=== PATIENT | female | born 1985 | race Caucasian/White ===

== ENCOUNTER 2018-10-31 21:10 | Observation (INO) | payer SELFPAY ==
[~2018-10-31] VITALS: Ht 162.6 cm; Wt 100.9 kg
[2018-10-31] MEDS ORDERED: NS 1,000 ML IV ONE ×2 (21:30→22:15)
[2018-10-31 22:01] LABS: BASO % 0.2 % (0.0-1.0); EOS % 0.2 % (0.0-3.0); HEMATOCRIT 35.5 % (36.0-47.0); HEMOGLOBIN 11.3 g/dl (12.0-15.5); LYMPH # 1.6 10^3/uL (1.5-4.5); LYMPH % 8.2 % (24.0-44.0); MEAN CORPUSCULAR HEMOGLOBIN 26.3 pg (27.0-33.0); MEAN CORPUSCULAR HGB CONC 31.8 g/dl (32.0-36.5); MEAN CORPUSCULAR VOLUME 82.8 fl (80.0-96.0); MONO # 0.8 10^3/uL (0.0-0.8); MONO % 4.1 % (0.0-5.0); NEUTROPHILS # 17.2 10^3/uL (1.8-7.7); NEUTROPHILS % 86.5 % (36.0-66.0); PLATELET COUNT, AUTOMATED 277 10^3/uL (150-450); RED BLOOD COUNT 4.29 10^6/uL (4.00-5.40); WHITE BLOOD COUNT 19.9 10^3/uL (4.0-10.0)
[2018-10-31 22:05] LABS: INR 1.11; PROTHROMBIN TIME 14.5 SECONDS (12.1-14.4)
[2018-10-31 22:06] LABS: PARTIAL THROMBOPLASTIN TIME 25.2 SECONDS (25.4-37.6)
[2018-10-31 22:17] LABS: BLOOD UREA NITROGEN 10 MG/DL (7-18); CALCIUM LEVEL 7.9 MG/DL (8.5-10.1); CARBON DIOXIDE LEVEL 24 MEQ/L (21-32); CHLORIDE LEVEL 106 MEQ/L (98-107); CK-MB VALUE MASS < 1.0 NG/ML (<3.6); CPK CREATINE PHOSPHOKINASE 40 U/L (26-192); CREATININE FOR GFR 0.62 MG/DL (0.55-1.30); GLOMERULAR FILTRATION RATE > 60.0 (>60); GLUCOSE, FASTING 121 MG/DL (70-100); HCG, SERUM QUANTITATIVE 8020 MIU/ML; POTASSIUM SERUM 3.7 MEQ/L (3.5-5.1); SODIUM LEVEL 136 MEQ/L (136-145); TROPONIN I < 0.02 NG/ML (< 0.10)
[2018-10-31] MEDS ORDERED: RHOGAM 300 MCG (1500 IU) INJ (J2790) IM ONE (22:45)
--- NOTE | 2018-11-01 00:42 | REPVR ---
EXAM: US First Trimester, Transabdominal EXAM DATE/TIME: 10/31/2018 11:02 PM CLINICAL HISTORY: 33 years old, female; Signs and symptoms; Lmp or gestational age (in weeks): Lmp 08/11/18; Antepartum complications; Bleeding; ; Additional info: Vaginal bleeding TECHNIQUE: Imaging protocol: Real-time transabdominal obstetrical ultrasound of the maternal pelvis and a first trimester , less than 14 weeks 0 days, with image documentation. COMPARISON: No relevant prior studies available. FINDINGS: GESTATION: Gestation: No intrauterine gestation sac is seen. MATERNAL: Uterus: Uterus measures 11.9 x 6.5 x 8.0 cm. Endometriam is smooth but thickned measuring 12.1- 16.6 cm. Clots in the endometrial canal. Right adnexa: Unremarkable. Left adnexa: Unremarkable. Intraperitoneal: No intraperitoneal free fluid. IMPRESSION: No intrauterine gestation sac is seen. Endometriam is smooth but thickned measuring 12.1- 16.6 cm. Clots in the endometrial canal. Findings represent spontaneous . Electronically signed by: Danni Estrada On 11/01/2018 00:41:33 AM
[2018-11-01] MEDS ORDERED: LR 1,000 ML IV SCH (01:00)
[2018-11-01] MEDS ORDERED: IBUP200T45 PO (01:15)
[2018-11-01] MEDS ORDERED: CAYE450C3 PO (01:15)
[2018-11-01] MEDS ORDERED: MAGN400C PO (01:15)
[2018-11-01] MEDS ORDERED: B-COTAB10 PO (01:15)
[2018-11-01] MEDS ORDERED: OYST1TAB PO (01:15)
[2018-11-01 01:55] VITALS: BP 126/70
[2018-11-01 05:00] VITALS: BP 119/62
[2018-11-01 07:24] LABS: HEMATOCRIT 30.3 % (36.0-47.0); HEMOGLOBIN 9.9 g/dl (12.0-15.5); MEAN CORPUSCULAR HEMOGLOBIN 26.6 pg (27.0-33.0); MEAN CORPUSCULAR HGB CONC 32.7 g/dl (32.0-36.5); MEAN CORPUSCULAR VOLUME 81.5 fl (80.0-96.0); PLATELET COUNT, AUTOMATED 235 10^3/uL (150-450); RED BLOOD COUNT 3.72 10^6/uL (4.00-5.40); WHITE BLOOD COUNT 9.1 10^3/uL (4.0-10.0)
[2018-11-01 08:00] VITALS: BP 127/69
--- NOTE | 2018-11-01 08:31 | ECGEPIP ---
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
--- NOTE | 2018-11-08 08:39 | DSES ---
DATE OF ADMISSION: 10/31/2018 DATE OF DISCHARGE: 11/01/2018 DISCHARGE DIAGNOSIS: Spontaneous miscarriage with hemorrhage. HISTORY: Manjula is a 33-year-old 7, para 0-2-6 now who was admitted via through emergency department (ED) due to a spontaneous miscarriage at home and continued bleeding. This morning she is feeling well. She denies headaches, palpitations and dizziness. She is tolerating by mouth fluids and voiding without difficulty. She reports the bleeding has significantly decreased. OBJECTIVE: Temperature 98.3, pulse 101, respirations 20, BP 119/62. She is alert and oriented times three. Her current hemoglobin is 9.9 with a hematocrit of 30.3. Her HCG quant has decreased to 4080. Her blood type is O negative and RhoGAM has been administered previously in the ED. PLAN: Discharge the patient to home. She is to followup at [facility] in 2 weeks just for a office visit. I did review access to care and danger signs to report to the provider. The patient and her 's questions have been answered and she does agree with discharge plan. She is to continue [id number] ibuprofen as needed as needed.
== END 2018-11-01 10:40 | disposition home or self-care (01) ==
LOC: M ED 21:10 → M ED INP 21:11 → M PED 11-01 01:55
PROVIDERS: ADMIT Obstetrics & Gynecology; ATTEND Obstetrics & Gynecology
DX: O02.1 Missed abortion (principal); I95.9 Hypotension, unspecified
CPT/HCPCS: 36415; 76801; 80048; 82550; 82553; 84484; 84702; 85025; 85027; 85610; 85730; 86850; 86900; 86901; 88305; 93005; 93041; 93976; 94760; 96360; 96361; 99285; J2790

== ENCOUNTER → 2025-02-19 | Outpatient (REF) | payer SELFPAY ==
[~2025-02-19] MED LIST: B-COTAB10 PO; CAYE450C3 PO; IBUP200T46 PO; MAGN400C PO; OYST1TAB PO; PRENTAB53 PO; VITA100093 PO
== END ==
LOC: M PLALAB 12:40
PROVIDERS: ATTEND Specialist
DX: Z34.83 Encounter for supervision of other normal pregnancy, third trimester (principal)